=== PATIENT | female | born 1970 | race Hispanic/Latino ===

== ENCOUNTER 2019-11-29 10:29 | Emergency (ER) | payer SELFPAY | END 2019-11-29 11:08 | disposition home or self-care (01) | LOC: ERS 10:29 | DX: K04.7 Periapical abscess without sinus (principal); K02.9 Dental caries, unspecified | CPT/HCPCS: 99282 ==

== ENCOUNTER 2019-12-27 21:50 | Emergency (ER) | payer SELFPAY ==
[2019-12-27] MEDS ORDERED: diphenhydrAMINE 50 MG/ML VIAL ONE (22:14)
[2019-12-27] MEDS ORDERED: Metoclopramide HCl 10 MG/2 ML VIAL ONE (22:14)
[2019-12-27] MEDS ORDERED: Magnesium 2 GM/50 ML BAG (IN WATER) ONE (22:14)
[2019-12-27] MEDS ORDERED: Acetaminophen 500 MG TAB ONE (22:14)
--- NOTE | 2019-12-27 22:53 | CT ---
Head CT without contrast 12/27/2019: COMPARISON: None HISTORY: Headache TECHNIQUE: Axial CT imaging at 5 mm intervals from vertex through skull base without contrast FINDINGS: Mild mucosal thickening of the right maxillary sinus. No displaced calvarial fracture. No intracranial hemorrhage, midline shift, or mass effect. IMPRESSION: No acute findings.
== END 2019-12-28 01:05 | disposition home or self-care (01) ==
LOC: ERS 21:50
DX: R51 Headache (principal); J45.909 Unspecified asthma, uncomplicated; I10 Essential (primary) hypertension; F41.9 Anxiety disorder, unspecified; Z79.899 Other long term (current) drug therapy
CPT/HCPCS: 70450; 93005; 96365; 96375; J1200; J2765; J3475